=== PATIENT | male | born 2005 | race African-American/Black ===

== ENCOUNTER 2025-04-07 10:47 | Inpatient (IN) | payer OTHER ==
[2025-04-07 11:19] VITALS: BMI 19.0
[2025-04-07] MEDS ORDERED: ONDANSETRON *ODT* 4 MG TABLET SL PRN (11:51)
[2025-04-07] MEDS ORDERED: IBUPROFEN 400 MG TABLET (FP) PO PRN (11:51)
[2025-04-07] MEDS ORDERED: hydrOXYzine PAMOATE 25 MG CAPSULE (FP) PO PRN (11:51)
[2025-04-07] MEDS ORDERED: BENZONATATE 200 MG CAPSULE PO PRN (11:51)
[2025-04-07] MEDS ORDERED: ACETAMINOPHEN 325 MG TABLET (FP) PO PRN (11:51)
[2025-04-07] MEDS ORDERED: MAGNESIUM HYDROX 2400MG/30ML ORAL SUSPENSION 30 ML CUP PO PRN (11:51)
[2025-04-07] MEDS ORDERED: METHOCARBAMOL 500 MG TABLET PO PRN (11:51)
[2025-04-07] MEDS ORDERED: guaiFENesin 600 MG TABLET.ER (FP) PO PRN (11:51)
[2025-04-07] MEDS ORDERED: LOPERAMIDE HCL 2 MG CAPSULE PO PRN (11:51)
[2025-04-07] MEDS ORDERED: IBUPROFEN 600 MG TABLET (FP) PO PRN (11:51)
[2025-04-07] MEDS ORDERED: BISMUTH SUBSALICYLATE 524 MG/30 ML PO PRN (11:51)
[2025-04-07] MEDS ORDERED: DICYCLOMINE HCL 10 MG CAPSULE PO PRN (11:51)
[2025-04-07] MEDS ORDERED: MAG HYDROX/AL HYDROX/SIMETH 30 ML UNIT-DOSE CUP PO PRN (11:51)
[2025-04-07] MEDS ORDERED: BENZOCAINE/MENTHOL (CHLORASEPTIC ) LOZENGE MM PRN (11:51)
[2025-04-07] MEDS ORDERED: NALOXONE (NARCAN) HCL 4 MG/0.1 ML SPRAY NS PRN (11:51)
[2025-04-07] MEDS ORDERED: POLYETHYLENE GLYCOL (HEALTHYLAX) 3350 17 GM PACKET PO PRN (11:51)
[2025-04-07] MEDS ORDERED: diazePAM 5 MG TABLET PO PRN (11:55)
[2025-04-07] MEDS ORDERED: BUPRENORPHINE/NALOXONE 0.5 MG/0.125 MG FILM ONE (12:14)
[2025-04-07] MEDS ORDERED: methaDONE HCL 10 MG TABLET (FOR DETOX USE ONLY) ONE (12:14)
[2025-04-07] MEDS: PRENATAL VITAMINS W/ FOLIC ACID TABLET (FP) PO SCH (12:15)
[2025-04-07] MEDS ORDERED: PRENATAL VITAMINS W/ FOLIC ACID TABLET (FP) PO ONE (12:15)
[2025-04-07] MEDS ORDERED: methaDONE HCL 10 MG TABLET (FOR DETOX USE ONLY) PO PRN (12:15)
[2025-04-07] MEDS: methaDONE HCL 10 MG TABLET (FOR DETOX USE ONLY) PO ONE (12:16)
[2025-04-07] MEDS: BUPRENORPHINE/NALOXONE 0.5 MG/0.125 MG FILM SL ONE ×2 (12:16→22:55)
[2025-04-07] MEDS: cloNIDine HCL 0.1 MG TABLET PO SCH (13:46)
[2025-04-07] MEDS: diazePAM 5 MG TABLET PO SCH (18:16)
[2025-04-07 20:39] VITALS: RESP 18
[2025-04-07] MEDS: MELATONIN 5 MG TABLETS PO SCH (22:39)
[2025-04-07] MEDS: THIAMINE 100 MG TABLET PO SCH (22:39)
[2025-04-08 09:48] VITALS: BP 116/79; PULSE 78; TEMP 98.1
[2025-04-08] MEDS: BUPRENORPHINE/NALOXONE 0.5 MG/0.125 MG FILM SL SCH (10:55)
[2025-04-08 11:39] LABS: POTASSIUM 4.8 mmol/L (3.5-5.1)
[2025-04-08 11:48] LABS: ALBUMIN 4.1 g/dl (3.4-5.0); BLOOD UREA NITROGEN 7.6 mg/dL (7-18); CALCIUM 10.4 mg/dL (8.5-10.1)
[2025-04-08 11:49] LABS: BILIRUBIN,TOTAL 0.3 mg/dL (0.2-1); TOT PROT 7.9 g/dl (6.4-8.2)
[2025-04-08 11:50] LABS: CREATININE 0.8 mg/dL (0.55-1.3)
[2025-04-08 12:04] LABS: HEMATOCRIT 45.9 % (40.1-51.0); HEMOGLOBIN 14.4 g/dL (13.7-17.5); MCHC 31.4 g/dl (32.3-36.5); MEAN CELL VOLUME 87.3 fl (79.0-92.2); MEAN PLT VOLUME 10.4 fl (9.4-12.4); PLATELET COUNT 410 x10^3/uL (163-337); RDW 13.6 % (12.0-15.6)
[2025-04-09] MEDS ORDERED: diazePAM 5 MG TABLET PO SCH (06:00)
[2025-04-09] MEDS ORDERED: methaDONE HCL 10 MG TABLET (FOR DETOX USE ONLY) PO ONE (10:00)
[2025-04-09] MEDS ORDERED: BUPRENORPHINE/NALOXONE 2 MG/0.5 MG FILM PACKET SL SCH (10:00)
[2025-04-10] MEDS ORDERED: diazePAM 5 MG TABLET PO SCH (06:00)
[2025-04-10] MEDS ORDERED: BUPRENORPHINE/NALOXONE 4 MG/1 MG FILM PACKET SL SCH (10:00)
[2025-04-11] MEDS ORDERED: diazePAM 5 MG TABLET PO ONE (06:00)
[2025-04-11] MEDS ORDERED: methaDONE HCL 10 MG TABLET (FOR DETOX USE ONLY) PO ONE (10:00)
[2025-04-11] MEDS ORDERED: BUPRENORPHINE/NALOXONE 8 MG/2 MG FILM PACKET SL SCH (10:00)
[2025-04-12] MEDS ORDERED: BUPRENORPHINE/NALOXONE 8 MG/2 MG FILM PACKET SL SCH (10:00)
== END 2025-04-08 12:40 | disposition home or self-care (01) | DRG 773 ==
LOC: YASAS 10:47 → Y6N 12:10
PROVIDERS: ADMIT Allergy & Immunology; ATTEND Allergy & Immunology
PROC: HZ2ZZZZ Detoxification Services for Substance Abuse Treatment (ICD-10-PCS; principal; 2025-04-07)
DX: F11.23 Opioid dependence with withdrawal (principal); F13.231 Sedative, hypnotic or anxiolytic dependence with withdrawal delirium; F14.20 Cocaine dependence, uncomplicated; F17.210 Nicotine dependence, cigarettes, uncomplicated; J45.909 Unspecified asthma, uncomplicated
CPT/HCPCS: 36415; 80053; 80305; 80307; 85027; 86780; 93005; 93010